=== PATIENT | female | born 1975 | race Caucasian/White ===

== ENCOUNTER 2020-02-11 17:42 | Emergency (ER) | payer MEDICAID ==
[~2020-02-11] VITALS: Ht 152.4 cm; Wt 64.0 kg
[2020-02-11 17:46] VITALS: Ht 152.4 cm; Wt 64.0 kg
[2020-02-11 18:24] VITALS: BP 129/59
== END 2020-02-11 18:24 | disposition home or self-care (01) ==
LOC: ED 17:42
DX: R05 Cough (principal); J02.9 Acute pharyngitis, unspecified; R07.89 Other chest pain; Z88.5 Allergy status to narcotic agent